=== PATIENT | female | born 1975 | race Caucasian/White ===

== ENCOUNTER 2017-09-28 17:40 | Emergency (ER) | payer BC, OTHER | END 2017-09-28 17:45 | disposition home or self-care (01) | LOC: E/R 17:45 | DX: J06.9 Acute upper respiratory infection, unspecified (principal); Z85.850 Personal history of malignant neoplasm of thyroid | CPT/HCPCS: 99283 ==

== ENCOUNTER → 2019-01-01 | Outpatient (CLI) | payer BC | END | disposition home or self-care (01) | LOC: VAS 15:11 | DX: R22.43 Localized swelling, mass and lump, lower limb, bilateral (principal) | CPT/HCPCS: 93970 ==

== ENCOUNTER 2019-03-16 18:50 | Emergency (ER) | payer BC | END 2019-03-16 20:19 | disposition home or self-care (01) | LOC: FTE 18:50 | DX: J32.9 Chronic sinusitis, unspecified (principal); Z85.850 Personal history of malignant neoplasm of thyroid | CPT/HCPCS: 99283 ==